=== PATIENT | female | born 1995 | race Caucasian/White ===

== ENCOUNTER 2024-06-25 17:10 | Emergency (ER) | payer BC ==
[2024-06-25] MEDS: Albuterol 6.7 GM Inhaler INH ONE (17:41)
== END 2024-06-25 18:38 ==
LOC: JD.ED 17:10
DX: J18.9 Pneumonia, unspecified organism (principal); Z88.8 Allergy status to other drugs, medicaments and biological substances
CPT/HCPCS: 71046; 94640; 99285; A9270